=== PATIENT | male | born 1955 | race Caucasian/White ===

== ENCOUNTER 2017-09-11 09:07 | Emergency (ER) | payer BC ==
[2017-09-11 09:26] VITALS: BP 151/77
--- NOTE | 2017-09-11 10:02 | UC ---
Pedro Verduzco Julia, scribed for Yuki Navarro MD on 09/11/17 at 0952 . Throat Pain/Nasal Brett HPI - HPI Summary HPI Summary: This patient is a 62 year old M presenting to [facility] with a chief complaint of sore throat for the past two days. Patient reports seeing a lesion in the back of his throat last night. The patient rates the pain 4/10 in severity. Patient denies nausea, ear pain, post nasal drip, sinus pain, sinus congestion, difficulty swallowing, and drooling. Symptoms improved with Alieve. No daily medications. Pt requesting being checked for strep. PMHx of seasonal allergies. - History of Current Complaint Chief Complaint: UCGeneralIllness Stated Complaint: SORE THROAT Time Seen by Provider: 09/11/17 09:43 Hx Obtained From: Patient Onset/Duration: Lasting Days Pain Intensity: 4 Pain Scale Used: 0-10 Numeric Associated Signs & Symptoms: Positive: Negative Related History: Seasonal Allergies - Allergies/Home Medications Allergies/Adverse Reactions: Allergies Allergy/AdvReac Type Severity Reaction Status Date / Time Penicillins Allergy Rash Verified 09/11/17 09:28 Home Medications: Home Medications NK [No Home Medications Reported] 09/11/17 [History Confirmed 09/11/17] PMH/Surg Hx/FS Hx/Imm Hx Previously Healthy: Yes - seasonal allergies - Surgical History Surgical History: Yes Surgery Procedure, Year, and Place: tonsillectomy - Family History Known Family History: Negative: Diabetes - Social History Occupation: Employed Full-time Lives: With Family Alcohol Use: Daily Alcohol Amount: 1 per day Substance Use Type: None Smoking Status (MU): Never Smoked Tobacco Review of Systems Constitutional: Negative ENT: Negative - ear pain, post nasal drip, sinus pain, sinus congestion, difficulty swallowing, and drooling, Sore Throat Gastrointestinal: Negative All Other Systems Reviewed And Are Negative: Yes Physical Exam Triage Information Reviewed: Yes Appearance: Well-Appearing, No Pain Distress, Ill-Appearing Vital Signs: Initial Vital Signs Temp 97.1 F 09/11/17 09:23 Pulse 75 09/11/17 09:23 Resp 15 09/11/17 09:23 BP 151/77 09/11/17 09:23 Pulse Ox 99 09/11/17 09:23 Vital Signs Reviewed: Yes Eye Exam: Normal Eyes: Positive: Conjunctiva Clear ENT Exam: Normal ENT: Positive: Hearing grossly normal, Pharyngeal erythema - Pt with ulcerative plaque lesion to right of uvula on soft palate - c/w viral lesion +diffuse erythema no exudate mild PND, Nasal congestion, TMs normal, Uvula midline, Other. Negative: Tonsillar swelling, Tonsillar exudate, Sinus tenderness Dental Exam: Normal Neck exam: Normal Neck: Positive: Supple, Nontender, No Lymphadenopathy Respiratory Exam: Normal Respiratory: Positive: Chest non-tender, Lungs clear, Normal breath sounds, No respiratory distress, No accessory muscle use Cardiovascular Exam: Normal Cardiovascular: Positive: RRR, No Murmur Abdominal Exam: Normal Abdomen Description: Positive: Nontender, No Organomegaly, Soft Bowel Sounds: Positive: Present Musculoskeletal Exam: Normal Neurological Exam: Normal Neurological: Positive: Alert Psychological Exam: Normal Skin Exam: Normal Throat Pain/Nasal Course/Dx - Course Course Of Treatment: Blood pressure noted and patient informed to follow up with PCP. Pt with sore throat, fatigue progressive. pt with neg strep. + viral appearing ulcerative lesion on right soft palate. no intraoral edema. no difficulty with secretion. Pt able to eat drink. secretion precaution. hydrate. motrin/apap. return precautions. pt comfortable and milly greement with plan - Differential Dx/Diagnosis Provider Diagnoses: oralsomtatitis Discharge - Sign-Out/Discharge Documenting (check all that apply): Discharge/Admit/Transfer - Discharge Plan Condition: Stable Disposition: HOME Patient Education Materials: Gingivostomatitis (ED) Referrals: Sahil Loza MD [Primary Care Provider] - Additional Instructions: - Stay well hydrated. Drink plenty of non-alcoholic, non-caffinated beverages - It is likely you may develop fevers as this is caused by a virus - okay to alternate ibuprofen (Advil, Motrin) and Tylenol every 3 hours for pain or fever - okay to gargle and spit with warm salt water as needed for discomfort - you may find cold food/drinks are soothing for your throat - cold water, popsicles etc - get plenty of restful sleep - contact your doctor or return with any questions or concerns - Billing Disposition and Condition Condition: STABLE Disposition: HOME The documentation as recorded by the Pedro car Julia accurately reflects the service I personally performed and the decisions made by , Yuki Navarro MD.
== END 2017-09-11 10:10 | disposition home or self-care (01) ==
LOC: UCEAST 09:07
DX: J02.9 Acute pharyngitis, unspecified (principal); Z88.0 Allergy status to penicillin
CPT/HCPCS: 87651; 99211; G0463

== ENCOUNTER 2019-11-24 09:53 | Observation (INO) ==
[~2019-11-24 09:53] MED LIST: Buffered Lidocaine 1% SYRIN 1 ml INTRADERM ONE; Lactated Ringers 1000 ml BAG 1,000 ML IV SCH
[2019-11-24] MEDS ORDERED: Clindamycin 900 MG/D5W BAG 900 MG/50 ML BAG IVPB ONE (10:08)
[2019-11-24] MEDS ORDERED: Midazolam 2 mg/2 ml VIAL 1 mg/ml 2 ml VIAL (2 mg) ONE (12:16)
[2019-11-24] MEDS ORDERED: fentaNYL 250 mcg/5 ml 50 MCG/ML 5 ml VIAL (250 MCG) ONE (12:19)
[2019-11-24] MEDS ORDERED: Ondansetron 4 mg VIAL 2 MG/ML 2 ml VIAL ONE (12:20)
[2019-11-24] MEDS ORDERED: Propofol 10 MG/ML 20 ML BTL ONE (12:20)
[2019-11-24] MEDS ORDERED: Succinylcholine 200 mg VIAL 20 mg/ml 10 ml VIAL (200 mg) ONE (12:20)
[2019-11-24] MEDS ORDERED: Metoclopramide 5 MG/ML VIAL (10 mg) ONE (12:20)
[2019-11-24] MEDS ORDERED: Lidocaine 2% PF 5 ML VIAL ONE (12:21)
[2019-11-24] MEDS ORDERED: Rocuronium 50 mg VIAL 10 mg/ml 5 ml VIAL (50 mg) ONE (12:22)
[2019-11-24] MEDS ORDERED: ROPIVACAINE 5 MG/ML 30 ML BTL (0.5%) ONE (12:29)
[2019-11-24] MEDS ORDERED: Phenylephrine 40 mcg/mL 10mL (400mcg) SYRINGE ONE (13:40)
[2019-11-24] MEDS ORDERED: EPHEDrine (Pressors) 50 MG/ML VIAL ONE (13:40)
[2019-11-24] MEDS ORDERED: HYDROmorphone 1 MG/1 ML SYRINGE IV PRN (14:32)
[2019-11-24] MEDS ORDERED: Ondansetron 4 mg VIAL 2 MG/ML 2 ml VIAL IV PRN ×2 (14:32→15:26)
[2019-11-24] MEDS ORDERED: Naloxone 0.4 mg VIAL 0.4 mg/ml 1 ml VIAL IV PRN (14:32)
[2019-11-24] MEDS ORDERED: DiMENhydriNATE IV 50 mg/ml 1 ml VIAL IV PUSH PRN (14:32)
[2019-11-24] MEDS ORDERED: Levalbuterol HFA INHALER MDI ONE (14:56)
[2019-11-24] MEDS ORDERED: diPHENhydraMINE 25 mg TAB PO PRN (15:26)
[2019-11-24] MEDS ORDERED: Ondansetron ODT 4 mg TAB 4 MG TAB PO PRN (15:26)
[2019-11-24] MEDS ORDERED: Lactulose 30 ml UDC PO PRN (15:26)
[2019-11-24] MEDS ORDERED: diPHENhydraMINE IV 50 MG/ML 1 ml VIAL (BENADRYL) IV PRN (15:26)
[2019-11-24] MEDS ORDERED: Magnesium Hydroxide LIQ 30 ML UDC PO PRN (15:26)
[2019-11-24] MEDS ORDERED: Morphine 2 MG/ML SYRINGE IV PRN (15:26)
[2019-11-24] MEDS ORDERED: oxyCODONE/Acetamin 5/325 mg TAB PO PRN (15:26)
[2019-11-24] MEDS ORDERED: Fluticasone-Salmeterol 100-50 DISKUS INH PRN (15:31)
[2019-11-24] MEDS ORDERED: fentaNYL 100 mcg/2 ml 50 MCG/ML VIAL ONE ×2 (15:35→16:16)
[2019-11-24] MEDS: fentaNYL 100 mcg/2 ml 50 MCG/ML VIAL IV PRN ×3 (15:37→16:18)
[2019-11-24 17:34] LABS: BUN/Creatinine Ratio 17.5 (8-20); Calcium 8.6 mg/dL (8.6-10.3); EGFR African American 118.1 (>60); EGFR Non-African American 97.6 (>60); Magnesium 1.7 mg/dL (1.9-2.7); Potassium 3.7 mmol/L (3.5-5.0)
[2019-11-24] MEDS ORDERED: Albuterol HFA INHALER 8 gm MDI INH PRN (17:53)
[2019-11-24] MEDS ORDERED: Potassium Chlor 20 meq TAB.ER PO ONE (18:14)
[2019-11-24] MEDS: Lactated Ringers 1000 ml BAG 1,000 ML IV SCH (18:57)
[2019-11-24] MEDS: oxyCODONE/Acetamin 5/325 mg TAB PO PRN (21:54)
[2019-11-24] MEDS: Magnesium Hydroxide LIQ 30 ML UDC PO SCH (21:55)
[2019-11-24] MEDS: Clindamycin 600 MG/D5W BAG 600 MG/50 ML BAG IV SCH (21:55)
[2019-11-25] MEDS ORDERED: Polyethylene Glycol 3350 17 GM PACKET PO PRN (00:01)
[2019-11-25] MEDS: oxyCODONE/Acetamin 5/325 mg TAB PO PRN (02:01)
[2019-11-25] MEDS: Clindamycin 600 MG/D5W BAG 600 MG/50 ML BAG IV SCH ×2 (04:45→13:26)
[2019-11-25] MEDS: Lactated Ringers 1000 ml BAG 1,000 ML IV SCH (05:43)
[2019-11-25] MEDS ORDERED: Magnesium Sulfate 2 gm BAG 2 GM/50 ML BAG IVPB ONE (07:38)
[2019-11-25 07:53] LABS: Hematocrit 33 % (42-52); Mean Platelet Volume 7.2 fL (7.4-10.4); Platelet Count 174 10^3/uL (150-450)
[2019-11-25 08:09] LABS: BUN/Creatinine Ratio 14.9 (8-20); Calcium 7.8 mg/dL (8.6-10.3); EGFR African American 107.2 (>60); EGFR Non-African American 88.6 (>60); Magnesium 1.7 mg/dL (1.9-2.7); Potassium 4.3 mmol/L (3.5-5.0)
[2019-11-25] MEDS ORDERED: Vitamin THERAPEUTIC TAB PO SCH (09:00)
[2019-11-25] MEDS ORDERED: Lactated Ringers 500 ml BAG 500 ML IV ONE (10:00)
[2019-11-25 11:43] VITALS: BP 109/57
[2019-11-25] MEDS: Magnesium Hydroxide LIQ 30 ML UDC PO SCH (13:22)
== END 2019-11-25 14:55 | disposition home or self-care (01) ==
LOC: OR 09:53 → SSU 09:53
PROVIDERS: ADMIT Orthopaedic Surgery Adult Reconstructive Orthopaedic Surgery; ATTEND Orthopaedic Surgery Adult Reconstructive Orthopaedic Surgery

== ENCOUNTER 2020-03-02 05:33 | Inpatient (IN) ==
[2020-03-02] MEDS ORDERED: Lactated Ringers 1000 ml BAG 1,000 ML IV SCH (06:00)
[2020-03-02] MEDS ORDERED: Buffered Lidocaine 1% SYRIN 1 ml INTRADERM ONE (06:00)
[2020-03-02] MEDS ORDERED: Clindamycin 900 MG/D5W BAG 900 MG/50 ML BAG IVPB ONE (06:08)
[2020-03-02] MEDS ORDERED: fentaNYL 100 mcg/2 ml 50 MCG/ML VIAL ONE ×2 (07:17→07:40)
[2020-03-02] MEDS ORDERED: Lidocaine 2% PF 5 ML VIAL ONE (07:17)
[2020-03-02] MEDS ORDERED: Propofol 10 MG/ML 20 ML BTL ONE ×2 (07:17→10:07)
[2020-03-02] MEDS ORDERED: Midazolam 2 mg/2 ml VIAL 1 mg/ml 2 ml VIAL (2 mg) ONE (07:17)
[2020-03-02] MEDS ORDERED: ROPIVACAINE 5 MG/ML 30 ML BTL (0.5%) ONE (07:33)
[2020-03-02] MEDS ORDERED: Naloxone 0.4 mg VIAL 0.4 mg/ml 1 ml VIAL IV PRN (07:34)
[2020-03-02] MEDS ORDERED: diPHENhydraMINE IV 50 MG/ML 1 ml VIAL (BENADRYL) IV PRN ×2 (07:34→10:16)
[2020-03-02] MEDS ORDERED: Ondansetron 4 mg VIAL 2 MG/ML 2 ml VIAL IV PRN ×2 (07:34→10:16)
[2020-03-02] MEDS ORDERED: EPHEDrine (Pressors) 50 MG/ML VIAL ONE (08:12)
[2020-03-02] MEDS ORDERED: Phenylephrine 40 mcg/mL 10mL (400mcg) SYRINGE ONE ×2 (08:12→09:04)
[2020-03-02] MEDS ORDERED: Phenylephrine IV 10 MG/ML 1 ml VIAL ONE (08:12)
[2020-03-02] MEDS ORDERED: Ondansetron 4 mg VIAL 2 MG/ML 2 ml VIAL ONE (10:07)
[2020-03-02] MEDS ORDERED: Ondansetron ODT 4 mg TAB 4 MG TAB PO PRN (10:16)
[2020-03-02] MEDS ORDERED: Morphine 2 MG/ML SYRINGE IV PRN (10:16)
[2020-03-02] MEDS ORDERED: Lactulose 30 ml UDC PO PRN (10:16)
[2020-03-02] MEDS ORDERED: Magnesium Hydroxide LIQ 30 ML UDC PO PRN (10:16)
[2020-03-02] MEDS ORDERED: diPHENhydraMINE 25 mg TAB PO PRN (10:16)
[2020-03-02] MEDS ORDERED: HYDROmorphone 1 MG/1 ML SYRINGE ONE (10:24)
[2020-03-02] MEDS: HYDROmorphone 1 MG/1 ML SYRINGE IV PRN ×3 (10:28→10:52)
[2020-03-02] MEDS: Lactated Ringers 1000 ml BAG 1,000 ML IV SCH ×2 (12:44→23:36)
[2020-03-02] MEDS: Clindamycin 600 MG/D5W BAG 600 MG/50 ML BAG IV SCH ×2 (16:19→23:16)
[2020-03-02] MEDS: Magnesium Hydroxide LIQ 30 ML UDC PO SCH (21:11)
[2020-03-03] MEDS ORDERED: Polyethylene Glycol 3350 17 GM PACKET PO PRN (00:01)
[2020-03-03 06:58] LABS: Hematocrit 35 % (42-52); Hemoglobin 12.4 g/dL (14.0-18.0); Platelet Count 194 10^3/uL (150-450)
[2020-03-03 07:33] LABS: Calcium 8.2 mg/dL (8.6-10.3); EGFR African American 110.2 (>60); Potassium 4.2 mmol/L (3.5-5.0)
[2020-03-03] MEDS: Clindamycin 600 MG/D5W BAG 600 MG/50 ML BAG IV SCH (08:00)
[2020-03-03] MEDS ORDERED: NS 0.9% 500 ml BAG 500 ML IV ONE (08:28)
[2020-03-03] MEDS: Magnesium Hydroxide LIQ 30 ML UDC PO SCH (08:29)
[2020-03-03] MEDS ORDERED: Vitamin THERAPEUTIC TAB PO SCH (09:00)
[2020-03-03] MEDS: Lactated Ringers 1000 ml BAG 1,000 ML IV SCH (11:05)
[2020-03-03 12:49] VITALS: BP 111/39
== END 2020-03-03 16:00 | disposition home or self-care (01) | DRG 301 ==
LOC: AA 05:33 → SSU 11:54
PROVIDERS: ADMIT Orthopaedic Surgery Adult Reconstructive Orthopaedic Surgery; ATTEND Orthopaedic Surgery Adult Reconstructive Orthopaedic Surgery

== ENCOUNTER 2024-05-21 05:49 | Observation (INO) ==
[~2024-05-21 05:49] MED LIST changes: -Buffered Lidocaine 1% SYRIN 1 ml INTRADERM ONE; -Lactated Ringers 1000 ml BAG 1,000 ML IV SCH; +Metoclopramide 5 MG/ML VIAL (10 mg) IV PRN; +NS 0.45% 1000 ml BAG 1,000 ML IV SCH; +Naloxone 0.4 mg VIAL 0.4 mg/ml 1 ml VIAL IV PRN; +Ondansetron 4 mg VIAL 2 MG/ML 2 ml VIAL IV PRN; +fentaNYL 100 mcg/2 ml 50 MCG/ML VIAL IV PRN
[2024-05-21] MEDS ORDERED: Vancomycin 1,000 MG VIAL ONE (06:07)
[2024-05-21] MEDS ORDERED: Lidocaine 1% w EPI 1:200,000 SDV 30 ML VIAL ONE (06:07)
[2024-05-21] MEDS ORDERED: Lidocaine 2% PF 5 ML VIAL ONE ×2 (06:14→06:25)
[2024-05-21] MEDS ORDERED: fentaNYL 100 mcg/2 ml 50 MCG/ML VIAL ONE (06:14)
[2024-05-21] MEDS ORDERED: Dexamethasone IV 4 MG/ML VIAL 1 ml VIAL ONE (06:14)
[2024-05-21] MEDS ORDERED: Midazolam 2 mg/2 ml VIAL 1 mg/ml 2 ml VIAL (2 mg) ONE (06:14)
[2024-05-21] MEDS ORDERED: Ondansetron 4 mg VIAL 2 MG/ML 2 ml VIAL ONE ×2 (06:14→07:34)
[2024-05-21] MEDS ORDERED: Propofol 10 MG/ML 20 ML BTL ONE (06:14)
[2024-05-21] MEDS ORDERED: Rocuronium 50 mg VIAL 10 mg/ml 5 ml VIAL (50 mg) ONE ×2 (06:14→09:16)
[2024-05-21] MEDS ORDERED: Phenylephrine IV 10 MG/ML 1 ml VIAL ONE (06:27)
[2024-05-21 06:35] LABS: Rapid COVID-19 Molecular Undetected (Undetected)
[2024-05-21] MEDS ORDERED: ceFAZolin 2 GM PREMIX 2 GM/50 ML BAG ONE (06:39)
[2024-05-21] MEDS ORDERED: Tranexamic Acid 1 GM/100ML BAG 2,000 MG/200 ML BAG IV ONE (06:39)
[2024-05-21] MEDS ORDERED: ROPIVACAINE 5 MG/ML 30 ML BTL (0.5%) ONE (06:50)
[2024-05-21] MEDS: Lactated Ringers 1000 ml BAG 1,000 ML IV SCH ×2 (07:12→15:09)
[2024-05-21] MEDS: Buffered Lidocaine 1% SYRIN 1 ml INTRADERM ONE (07:13)
[2024-05-21] MEDS ORDERED: KETAMINE HCL 10 MG/ML 20 ml VIAL (200 MG) ONE (08:42)
[2024-05-21] MEDS ORDERED: Morphine 2 MG/ML SYRINGE IV PRN (08:44)
[2024-05-21] MEDS ORDERED: Ondansetron 4 mg VIAL 2 MG/ML 2 ml VIAL IV PRN (08:44)
[2024-05-21] MEDS ORDERED: Magnesium Hydroxide LIQ 30 ML UDC PO PRN (08:44)
[2024-05-21] MEDS ORDERED: Lactulose 30 ml UDC PO PRN (08:44)
[2024-05-21] MEDS ORDERED: Ondansetron ODT 4 mg TAB 4 MG TAB PO PRN (08:44)
[2024-05-21] MEDS ORDERED: Calcium Carb (TUMS) 500 mg CHEW TAB PO PRN (08:44)
[2024-05-21] MEDS ORDERED: HYDROmorphone 0.5 MG/0.5 ML SYRINGE ONE (08:53)
[2024-05-21] MEDS ORDERED: Albuterol HFA INHALER 8 gm MDI INH PRN (13:11)
[2024-05-21] MEDS: Magnesium Hydroxide LIQ 30 ML UDC PO SCH (15:05)
[2024-05-21] MEDS: Scopolamine 1 mg/72hr PATCH TRANSDERM ONE (15:05)
[2024-05-21] MEDS: Acetaminophen IV 1 GM/100ML 1,000 MG/100 ML BAG IV ONE (15:05)
[2024-05-21] MEDS: Vitamin THERAPEUTIC TAB PO SCH (15:06)
[2024-05-21] MEDS: ceFAZolin 2 GM PREMIX 2 GM/50 ML BAG IV SCH (16:03)
[2024-05-21 17:44] VITALS: BP 138/82
[2024-05-21] MEDS ORDERED: Mometasone/Formoter 100/5 MDI INH SCH (19:00)
== END 2024-05-21 18:15 | disposition home or self-care (01) ==
LOC: SSU 05:49 → OR 05:49
PROVIDERS: ADMIT Orthopaedic Surgery; ATTEND Orthopaedic Surgery